=== PATIENT | male | born 1965 | race Caucasian/White ===

== ENCOUNTER 2017-11-15 09:17 | Emergency (ER) | payer OTHER ==
[~2017-11-15] VITALS: Ht 190.5 cm; Wt 85.7 kg
[2017-11-15] MEDS ORDERED: UNICOMPLEX M TA1 TA1 PO (09:26)
[2017-11-15] MEDS ORDERED: NEOMYC-POLYM-DEX5 ML OPHTHALMIC (09:56)
[2017-11-15] MEDS ORDERED: NEO-BACIT-POLY3.5 G2 OPHTHALMIC (09:56)
[2017-11-15 10:16] VITALS: BP 154/95
== END 2017-11-15 10:16 | disposition home or self-care (01) ==
LOC: ER 09:17
DX: S05.01XA Injury of conjunctiva and corneal abrasion without foreign body, right eye, initial encounter (principal); H00.022 Hordeolum internum right lower eyelid; X58.XXXA Exposure to other specified factors, initial encounter; Y92.89 Other specified places as the place of occurrence of the external cause; Y93.89 Activity, other specified; Y99.8 Other external cause status

== ENCOUNTER 2018-11-19 14:21 | Emergency (ER) | payer OTHER ==
[~2018-11-19] VITALS: Ht 190.5 cm; Wt 85.7 kg
[~2018-11-19 14:21] MED LIST: NEO-BACIT-POLY3.5 G2 OPHTHALMIC; NEOMYC-POLYM-DEX5 ML OPHTHALMIC; UNICOMPLEX M TA1 TA1 PO
[2018-11-19 15:59] LABS: ABSOLUTE NEUTROPHILS 5.7 thou/uL (1.4-8.2); BASOPHILS 0.8 % (0.0-2.0); EOSINOPHILS 0.3 % (0.0-3.0); HEMATOCRIT 46.5 % (42.0-52.0); HEMOGLOBIN 15.7 gm/dL (14.0-18.0); LYMPHOCYTES 21.6 % (24.0-44.0); MCH 29.6 pg (26.0-34.0); MCHC 33.9 g/dL (28.0-37.0); MCV 87.3 fL (80.0-100.0); PLATELET COUNT 194 thou/uL (150-400); POLYS 71.3 % (36.0-66.0); RBC 5.32 mil/uL (4.50-6.00); RDW 13.7 % (10.5-14.5); WBC 8.1 thou/uL (4.0-11.0)
[2018-11-19 16:07] LABS: ANION GAP 13 mmol/L (7-16); BUN 15 mg/dL (7-18); CHLORIDE 104 mmol/L (98-107); CO2 25 mmol/L (21-32); CREATININE 1.5 mg/dL (0.7-1.3); GLUCOSE 100 mg/dL (74-106); POTASSIUM 3.9 mmol/L (3.5-5.1); SODIUM 142 mmol/L (136-145)
[2018-11-19 16:17] LABS: LIPASE 94 U/L (73-393); TROPONIN-I <0.06 ng/mL (<0.06)
[2018-11-19 18:46] VITALS: BP 115/76
--- NOTE | 2018-11-21 07:36 | EKG ---
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1965 Requested By: Demetrio Jack Order Number: [id number] MD: Shahbaz Daly Measurements Intervals [place] Rate: 88 P: 39 ME: 141 QRS: -19 QRSD: 87 T: 58 QT: 357 QTc: 432 Interpretive Statements Sinus rhythm Early R-wave progression ST elev, probable normal early repol pattern No previous ECG available for comparison Electronically Signed On 11-21-2018 7:36:35 CDT by Shahbaz Daly [email or web address] ��������������������������������������������� <ELECTRONICALLY SIGNED> ���������������������������������������� By: Shahbaz Daly MD, [facility] ��������������������������������������������� 11/21/18 0736 1530 1530 Shahbaz Daly MD, FACC /EPI
== END 2018-11-19 16:53 | disposition home or self-care (01) ==
LOC: ER 14:21
PROVIDERS: Emergency Medicine
DX: S20.219A Contusion of unspecified front wall of thorax, initial encounter (principal); W01.198A Fall on same level from slipping, tripping and stumbling with subsequent striking against other object, initial encounter; Y92.89 Other specified places as the place of occurrence of the external cause; Y93.89 Activity, other specified; Y99.8 Other external cause status